=== PATIENT | female | born 1955 | race Asian ===

== ENCOUNTER → 2016-11-02 | Outpatient (CLI) | payer MEDICARE | END | disposition home or self-care (01) | LOC: RADPV 14:05 | PROVIDERS: ATTEND Podiatrist | DX: E11.621 Type 2 diabetes mellitus with foot ulcer (principal); L97.529 Non-pressure chronic ulcer of other part of left foot with unspecified severity; M85.872 Other specified disorders of bone density and structure, left ankle and foot; M20.12 Hallux valgus (acquired), left foot; S93.102A Unspecified subluxation of left toe(s), initial encounter; X58.XXXA Exposure to other specified factors, initial encounter; Y93.9 Activity, unspecified; Y92.9 Unspecified place or not applicable; Y99.9 Unspecified external cause status ==

== ENCOUNTER 2017-03-30 05:35 | Day surgery (SDC) | payer MEDICARE, OTHER ==
[~2017-03-30] VITALS: Ht 160 cm; Wt 79.5 kg
[~2017-03-30 05:35] MED LIST: INSLAN SQ
[2017-03-30] MEDS ORDERED: CeFAZolin 2 GM/DEXTROSE 50 ML IV ONE ×2 (05:43→07:30)
[2017-03-30] MEDS ORDERED: RINGERS SOLUTION,LACTATED 1,000 ML IV ONE ×3 (05:43→07:30)
[2017-03-30 06:42] LABS: GLUCOSE,POINT OF CARE 157 MG/DL (70-110)
[2017-03-30] MEDS ORDERED: GUM MASTIC/STORAX/MSAL/ALCOHOL LIQUID 0.67 ML VIAL TP ONE (06:52)
[2017-03-30] MEDS ORDERED: LIDOCAINE HCL 1%/EPI 1:200,000/PF 10 ML VIAL ONE (06:53)
[2017-03-30] MEDS ORDERED: SODIUM CL IRRIG SOLN BAG 3,000 ML IRRIG ONE (06:53)
[2017-03-30] MEDS ORDERED: ROCURONIUM BROMIDE 10 MG/ML 5 ML VIAL ONE (07:09)
[2017-03-30] MEDS ORDERED: BUPIVACAINE HCL/PF 0.25% 30 ML VIAL ONE (09:30)
[2017-03-30] MEDS ORDERED: BACITRACIN 28.4 GM OINTMENT TP ONE (10:05)
[2017-03-30] MEDS ORDERED: HYDROmorphone 2 MG/ML SYRINGE IVP PRN (11:15)
[2017-03-30] MEDS ORDERED: OXYGEN THERAPY IH SCH (11:15)
[2017-03-30] MEDS ORDERED: HYDR-309 PO ×4 (11:22→11:25)
[2017-03-30] MEDS ORDERED: NEOSTIGMINE METHYLSULFATE 1 MG/ML 10 ML VIAL IVP ONE (12:00)
[2017-03-30] MEDS ORDERED: KETOROLAC TROMETHAMINE 60 MG/2 ML VIAL IM ONE (12:00)
[2017-03-30] MEDS ORDERED: EPHEDrine SULFATE 50 MG/ML VIAL IM ONE (12:00)
[2017-03-30] MEDS ORDERED: PROPOFOL 1% 20 ML VIAL IVP ONE (12:00)
[2017-03-30] MEDS ORDERED: GLYCOPYRROLATE 0.2 MG/ML VIAL IM ONE (12:00)
[2017-03-30] MEDS ORDERED: HYDROmorphone 2 MG/ML SYRINGE IVP ONE (12:00)
[2017-03-30] MEDS ORDERED: FentaNYL CITRATE-PF 100 MCG/2 ML VIAL IVP ONE (12:00)
[2017-03-30] MEDS ORDERED: METOCLOPRAMIDE HCL 5 MG/ML 2 ML VIAL IVP ONE (12:00)
[2017-03-30] MEDS ORDERED: LIDOCAINE HCL/PF 2% 5 ML VIAL INJ ONE (12:00)
[2017-03-30] MEDS ORDERED: MIDAZOLAM HCL 2 MG/2 ML VIAL IVP ONE (12:00)
[2017-03-30] MEDS ORDERED: ONDANSETRON HCL 4 MG/2 ML VIAL IVP ONE (12:00)
[2017-03-30] MEDS ORDERED: DiphenhydrAMINE HCL 50 MG/ML VIAL IVP ONE (12:00)
[2017-03-30] MEDS ORDERED: ROCURONIUM BROMIDE 10 MG/ML 5 ML VIAL IVP ONE (12:00)
== END 2017-03-30 13:20 | disposition home or self-care (01) ==
LOC: SURGERY 05:35
PROVIDERS: ATTEND Orthopaedic Surgery
DX: S46.012A Strain of muscle(s) and tendon(s) of the rotator cuff of left shoulder, initial encounter (principal); M75.22 Bicipital tendinitis, left shoulder; M75.42 Impingement syndrome of left shoulder; E11.9 Type 2 diabetes mellitus without complications; Z88.6 Allergy status to analgesic agent; Z88.8 Allergy status to other drugs, medicaments and biological substances; Z79.4 Long term (current) use of insulin; Z90.710 Acquired absence of both cervix and uterus; Z90.49 Acquired absence of other specified parts of digestive tract; Z90.89 Acquired absence of other organs; Z87.828 Personal history of other (healed) physical injury and trauma; X58.XXXA Exposure to other specified factors, initial encounter; Y93.9 Activity, unspecified; Y92.9 Unspecified place or not applicable
CPT/HCPCS: 23430; 29826; 29827; 82962; 93005; C1713; J0690; J1170; J1200; J1885; J2250; J2405; J2704; J2765; J3010; J3490 ×6; J7120

== ENCOUNTER → 2018-01-18 | Outpatient (CLI) | payer MEDICARE ==
[~2018-01-18] MED LIST changes: +HYDR-309 PO
== END | disposition home or self-care (01) ==
LOC: RADPV 11:25
PROVIDERS: ATTEND Podiatrist
DX: S92.421A Displaced fracture of distal phalanx of right great toe, initial encounter for closed fracture (principal); M79.89 Other specified soft tissue disorders; X58.XXXA Exposure to other specified factors, initial encounter; Y93.89 Activity, other specified; Y92.89 Other specified places as the place of occurrence of the external cause; Y99.8 Other external cause status

== ENCOUNTER → 2018-09-20 | Outpatient (CLI) | payer MEDICARE | END | disposition home or self-care (01) | LOC: RADPV 11:17 | PROVIDERS: ATTEND Podiatrist | DX: S92.355A Nondisplaced fracture of fifth metatarsal bone, left foot, initial encounter for closed fracture (principal); M20.12 Hallux valgus (acquired), left foot; X58.XXXA Exposure to other specified factors, initial encounter; Y93.89 Activity, other specified; Y92.89 Other specified places as the place of occurrence of the external cause; Y99.8 Other external cause status ==

== ENCOUNTER → 2018-11-07 | Outpatient (CLI) | payer MEDICARE | END | disposition home or self-care (01) | LOC: RADPV 13:02 | PROVIDERS: ATTEND Podiatrist | DX: S92.352D Displaced fracture of fifth metatarsal bone, left foot, subsequent encounter for fracture with routine healing (principal); M19.072 Primary osteoarthritis, left ankle and foot; M20.12 Hallux valgus (acquired), left foot; M21.612 Bunion of left foot; X58.XXXD Exposure to other specified factors, subsequent encounter ==

== ENCOUNTER → 2018-11-21 | Outpatient (CLI) | payer MEDICARE | END | disposition home or self-care (01) | LOC: RADPV 12:04 | PROVIDERS: ATTEND Podiatrist | DX: S92.411A Displaced fracture of proximal phalanx of right great toe, initial encounter for closed fracture (principal); I70.0 Atherosclerosis of aorta; X58.XXXA Exposure to other specified factors, initial encounter; Y93.89 Activity, other specified; Y92.89 Other specified places as the place of occurrence of the external cause; Y99.8 Other external cause status; M20.5X1 Other deformities of toe(s) (acquired), right foot ==